=== PATIENT | male | born 1945 | race Caucasian/White ===

== ENCOUNTER 2016-10-05 14:33 | Inpatient (IN) | payer MEDICARE, OTHER ==
[~2016-10-05] VITALS: Ht 157.5 cm; Wt 102.7 kg
[2016-10-05 15:01] LABS: HEMOGLOBIN 10.6 gm/dl (14.0-17.5); RED BLOOD COUNT 3.53 M/UL (4.20-5.50); WHITE BLOOD COUNT 9.8 K/UL (4.5-11.0)
[2016-10-06] MEDS ORDERED: LASIX40 MG PO (00:04)
[2016-10-06] MEDS ORDERED: LEVOTHYROXINE25 MCG PO (00:04)
[2016-10-06] MEDS ORDERED: KLONOPIN TAB 00.5 MG PO (00:05)
[2016-10-06] MEDS ORDERED: ZANTAC150 MG PO (00:05)
[2016-10-06] MEDS ORDERED: RANEXA1000 MG PO (00:07)
[2016-10-06] MEDS ORDERED: UROXATRAL 10 MG10 MG PO (00:07)
[2016-10-06] MEDS ORDERED: BRILINTA90 MG PO (00:08)
[2016-10-06] MEDS ORDERED: PAROXETINE HCL40 MG PO (00:09)
[2016-10-06] MEDS ORDERED: METOPROLOL TART50 MG PO (00:10)
[2016-10-06] MEDS ORDERED: LIPITOR TAB 2020 MG PO ×2 (00:10→00:11)
[2016-10-06] MEDS ORDERED: ISOSORBIDE MONO10 MG PO (00:13)
[2016-10-06] MEDS ORDERED: AVODART0.5 MG PO (00:14)
[2016-10-06] MEDS ORDERED: ASPIR 8181 MG PO (00:15)
[2016-10-06] MEDS ORDERED: NORVASC 5 MG TAB5 MG PO (00:15)
[2016-10-06] MEDS ORDERED: TRICOR 145 MG145 MG PO (00:15)
[2016-10-06] MEDS ORDERED: VITAMIN C 500500 MG PO (00:16)
[2016-10-06] MEDS ORDERED: HYDRALAZINE HCL50 MG PO (00:17)
[2016-10-06] MEDS ORDERED: K-DUR TAB 20 M20 MEQ PO (00:17)
[2016-10-06] MEDS ORDERED: NITROGLYCERIN0.4 MG SL (00:19)
[2016-10-06 06:05] LABS: HEMOGLOBIN 11.1 gm/dl (14.0-17.5); RED BLOOD COUNT 3.67 M/UL (4.20-5.50); WHITE BLOOD COUNT 9.7 K/UL (4.5-11.0)
[2016-10-07 04:14] LABS: HEMOGLOBIN 11.1 gm/dl (14.0-17.5); RED BLOOD COUNT 3.72 M/UL (4.20-5.50); WHITE BLOOD COUNT 10.2 K/UL (4.5-11.0)
[2016-10-08 06:14] LABS: HEMOGLOBIN 11.1 gm/dl (14.0-17.5); RED BLOOD COUNT 3.7 M/UL (4.20-5.50); WHITE BLOOD COUNT 10.4 K/UL (4.5-11.0)
[2016-10-09 03:51] LABS: HEMOGLOBIN 11.2 gm/dl (14.0-17.5); RED BLOOD COUNT 3.79 M/UL (4.20-5.50); WHITE BLOOD COUNT 8.7 K/UL (4.5-11.0)
[2016-10-13 04:55] LABS: BUN/CREATININE RATIO 35 (0-10)
[2016-10-15] MEDS ORDERED: MIRALAX PACK 171 PKT PO (10:27)
[2016-10-15] MEDS ORDERED: COMBIVENT0.074 GM/I INH (10:29)
[2016-12-01] MEDS ORDERED: VITAMIN D31000 UNIT PO (18:16)
[2016-12-03] MEDS ORDERED: SPIRIVA18 MCG INH (20:10)
== END 2016-10-15 11:25 | disposition home health service (06) | DRG 207 ==
LOC: ER1 14:33 → PROG CARE 17:58 → ZEROF 17:58 → CCU 17:58 → PROG CARE 23:35 → CCU 10-06 10:41 → PROG CARE 10-13 16:05
PROVIDERS: Emergency Medicine; Internal Medicine; Internal Medicine Nephrology; ADMIT Hospitalist
PROC: 5A1955Z Respiratory Ventilation, Greater than 96 Consecutive Hours (ICD-10-PCS; principal; 2016-10-06)
PROC: 0BH17EZ Insertion of Endotracheal Airway into Trachea, Via Natural or Artificial Opening (ICD-10-PCS; 2016-10-06)
PROC: 5A09357 Assistance with Respiratory Ventilation, Less than 24 Consecutive Hours, Continuous Positive Airway Pressure (ICD-10-PCS; 2016-10-10)
DX: J96.21 Acute and chronic respiratory failure with hypoxia (principal); I50.33 Acute on chronic diastolic (congestive) heart failure; I13.0 Hypertensive heart and chronic kidney disease with heart failure and stage 1 through stage 4 chronic kidney disease, or unspecified chronic kidney disease; N17.9 Acute kidney failure, unspecified; E87.0 Hyperosmolality and hypernatremia; E66.2 Morbid (severe) obesity with alveolar hypoventilation; Z68.41 Body mass index [BMI] 40.0-44.9, adult; Z99.11 Dependence on respirator [ventilator] status; J96.02 Acute respiratory failure with hypercapnia; N18.3 Chronic kidney disease, stage 3 (moderate); I25.10 Atherosclerotic heart disease of native coronary artery without angina pectoris; E87.6 Hypokalemia; T50.1X5A Adverse effect of loop [high-ceiling] diuretics, initial encounter; I70.203 Unspecified atherosclerosis of native arteries of extremities, bilateral legs; J44.9 Chronic obstructive pulmonary disease, unspecified; E03.9 Hypothyroidism, unspecified; D64.9 Anemia, unspecified; E78.5 Hyperlipidemia, unspecified; K21.9 Gastro-esophageal reflux disease without esophagitis; I07.1 Rheumatic tricuspid insufficiency; R50.9 Fever, unspecified; F17.210 Nicotine dependence, cigarettes, uncomplicated; F41.9 Anxiety disorder, unspecified; Z95.1 Presence of aortocoronary bypass graft; Z98.61 Coronary angioplasty status; Z95.820 Peripheral vascular angioplasty status with implants and grafts; Z72.3 Lack of physical exercise; Z99.81 Dependence on supplemental oxygen; Z79.82 Long term (current) use of aspirin; Z79.899 Other long term (current) drug therapy; Z88.2 Allergy status to sulfonamides; Z82.49 Family history of ischemic heart disease and other diseases of the circulatory system; Z80.3 Family history of malignant neoplasm of breast
CPT/HCPCS: ECHO; 31500; 36415; 36600; 71010; 71020; 74000; 80048; 80053; 80202; 81001; 82043; 82550; 82553; 82570; 82803; 83735; 83874; 83880; 84132; 84439; 84443; 84484; 85025; 85027; 87040; 87070; 87081; 87205; 93005; 93306; 93970; 94002; 94003; 94640; 94660; 94664; 96374; 96375; 97110; 97116; 97530; 99285; A4628; C1751; J0330; J1120; J1940; J1956; J2250; J2765; J2930; J3370; J3480; J7050; J7070

== ENCOUNTER → 2016-10-21 | Outpatient (CLI) | payer MEDICARE, OTHER ==
[~2016-10-21] MED LIST: ASPIR 8181 MG PO; AVODART0.5 MG PO; BRILINTA90 MG PO; COMBIVENT0.074 GM/I INH; HYDRALAZINE HCL50 MG PO; ISOSORBIDE MONO10 MG PO; K-DUR TAB 20 M20 MEQ PO; KLONOPIN TAB 00.5 MG PO; LASIX40 MG PO; LEVOTHYROXINE25 MCG PO; LIPITOR TAB 2020 MG PO; METOPROLOL TART50 MG PO; MIRALAX PACK 171 PKT PO; NITROGLYCERIN0.4 MG SL; NORVASC 5 MG TAB5 MG PO; PAROXETINE HCL40 MG PO; RANEXA1000 MG PO; SPIRIVA18 MCG INH; TRICOR 145 MG145 MG PO; UROXATRAL 10 MG10 MG PO; VITAMIN C 500500 MG PO; VITAMIN D31000 UNIT PO; ZANTAC150 MG PO
== END ==
LOC: LAB 13:15
PROVIDERS: Internal Medicine
DX: N19 Unspecified kidney failure (principal)
CPT/HCPCS: 36415; 80048

== ENCOUNTER → 2016-11-07 | Outpatient (CLI) | payer MEDICARE, OTHER | LOC: NM 09:36 | DX: R06.02 Shortness of breath (principal); I25.708 Atherosclerosis of coronary artery bypass graft(s), unspecified, with other forms of angina pectoris; I50.32 Chronic diastolic (congestive) heart failure; R09.02 Hypoxemia; R60.9 Edema, unspecified; I73.9 Peripheral vascular disease, unspecified; R94.39 Abnormal result of other cardiovascular function study | CPT/HCPCS: 78452; 93017; A9502; J2785 ==

== ENCOUNTER → 2016-11-14 | Outpatient (CLI) | payer MEDICARE, OTHER | LOC: LAB 12:06 | PROVIDERS: Internal Medicine Cardiovascular Disease | DX: Z79.899 Other long term (current) drug therapy (principal) | CPT/HCPCS: 36415; 80048 ==

== ENCOUNTER → 2020-07-15 | Outpatient (CLI) | payer MEDICARE, OTHER ==
[~2020-07-15] MED LIST changes: +ALBUTEROL2.5 MG/3 M INH; +ALPHAGAN P5 ML EYEBOTH; +AMLODIPINE BESYL5 MG PO; +ASPIRIN EC81 MG PO; +ATORVASTATIN CA40 MG PO; +BUMETANIDE2 MG PO; +CARDURA 2MG TAB2 MG PO; +CATAPRES 0.1MG0.1 MG PO; +FLAGYL500 MG PO; +GABAPENTIN300 MG PO; +IMDUR ER TAB 3030 MG PO; +ISOSORBIDE MONO60 MG PO; +KLONOPIN2 MG PO; -LASIX40 MG PO; +LOPRESSOR 25 MG25 MG PO; -METOPROLOL TART50 MG PO; +MIRALAX17 GM PO; +NEURONTIN300 MG PO; +PLAVIX 75 MG TA75 MG PO; +PROTONIX 40 MG40 M1 PO; +SPIRIVA RESPIMAT4 GM INH; -SPIRIVA18 MCG INH; +TOPICAINE 530 GM TOP; +VENTOLIN HFA 66.7 GM INH; +VOLTAREN100 GM TOP; +ZOFRAN ODT 4 MG4 MG SL
== END ==
LOC: KOH-I 13:20
DX: M54.5 Low back pain (principal); M51.26 Other intervertebral disc displacement, lumbar region; M51.27 Other intervertebral disc displacement, lumbosacral region; M48.061 Spinal stenosis, lumbar region without neurogenic claudication; M48.07 Spinal stenosis, lumbosacral region
CPT/HCPCS: 72148

== ENCOUNTER → 2020-07-17 | Outpatient (CLI) | payer MEDICARE, OTHER | LOC: MAMO 05-18 11:00 → US 06-18 14:00 → MAMO 13:00 | DX: N64.4 Mastodynia (principal) | CPT/HCPCS: 76641-LT; 76641-RT; 77066 ==

== ENCOUNTER → 2020-08-10 | Outpatient (CLI) | payer MEDICARE, OTHER | LOC: LAB 12:52 | PROVIDERS: Internal Medicine Nephrology | DX: N18.30 Chronic kidney disease, stage 3 unspecified (principal) | CPT/HCPCS: 80053; 82570; 84156 ==

== ENCOUNTER → 2020-11-25 | Outpatient (CLI) | payer MEDICARE, OTHER | LOC: LAB 11:42 | PROVIDERS: Internal Medicine Nephrology | DX: N18.30 Chronic kidney disease, stage 3 unspecified (principal); E87.6 Hypokalemia | CPT/HCPCS: 36415; 80053; 82570; 83735; 84156 ==

== ENCOUNTER → 2020-12-16 | Outpatient (CLI) | payer MEDICARE, OTHER | LOC: LAB 13:14 | PROVIDERS: Internal Medicine Nephrology | DX: E87.6 Hypokalemia (principal) | CPT/HCPCS: 80048 ==

== ENCOUNTER → 2021-02-25 | Outpatient (CLI) | payer MEDICARE, OTHER | LOC: LAB 16:44 | PROVIDERS: Internal Medicine Nephrology | DX: N18.32 Chronic kidney disease, stage 3b (principal) | CPT/HCPCS: 36415; 80053; 82570; 84156 ==

== ENCOUNTER → 2021-05-26 | Outpatient (CLI) | payer MEDICARE, OTHER ==
[2021-05-27 07:11] LABS: A/G RATIO 1.4 (1.2-2.2); BILIRUBIN, TOTAL 0.2 mg/dL (0.0-1.2); CALCIUM, SERUM 9.8 mg/dL (8.6-10.2); CREATININE, SERUM 1.62 mg/dL (0.76-1.27); GLOBULIN, TOTAL 2.8 g/dL (1.5-4.5); POTASSIUM, SERUM 4.5 mmol/L (3.5-5.2); PROTEIN, TOTAL, SERUM 6.8 g/dL (6.0-8.5); VITAMIN D, 25-HYDROXY 25.5 ng/mL (30.0-100.0)
[2021-05-27 08:13] LABS: MAGNESIUM 2.1 mg/dL (1.6-2.3)
== END ==
LOC: LAB 09:49
PROVIDERS: Internal Medicine Nephrology
DX: N18.32 Chronic kidney disease, stage 3b (principal); E87.6 Hypokalemia
CPT/HCPCS: 36415; 80053; 82570; 83735; 83970; 84156

== ENCOUNTER → 2021-07-15 | Outpatient (CLI) | payer MEDICARE, OTHER | LOC: LAB 15:29 | PROVIDERS: Internal Medicine Nephrology | DX: N18.32 Chronic kidney disease, stage 3b (principal) | CPT/HCPCS: 36415; 80053; 82570; 83735; 83970; 84156 ==

== ENCOUNTER 2021-08-30 15:27 | Emergency (ER) | payer MEDICARE, OTHER ==
[2021-08-30 16:45] LABS: HEMOGLOBIN 13.7 gm/dl (14.0-17.5); RED BLOOD COUNT 4.42 M/UL (4.20-5.50); WHITE BLOOD COUNT 9.8 K/UL (4.5-11.0)
== END 2021-08-30 22:17 | disposition left against medical advice (07) ==
LOC: ER1 15:27 → CDU 20:35 → ER1 20:35
PROVIDERS: Family Medicine
DX: R07.89 Other chest pain (principal); I13.0 Hypertensive heart and chronic kidney disease with heart failure and stage 1 through stage 4 chronic kidney disease, or unspecified chronic kidney disease; I50.32 Chronic diastolic (congestive) heart failure; I25.2 Old myocardial infarction; J44.9 Chronic obstructive pulmonary disease, unspecified; N18.30 Chronic kidney disease, stage 3 unspecified; I25.10 Atherosclerotic heart disease of native coronary artery without angina pectoris; E78.5 Hyperlipidemia, unspecified; F17.210 Nicotine dependence, cigarettes, uncomplicated; Z88.2 Allergy status to sulfonamides; Z95.1 Presence of aortocoronary bypass graft; E03.9 Hypothyroidism, unspecified; F41.9 Anxiety disorder, unspecified; Z88.5 Allergy status to narcotic agent
CPT/HCPCS: 71045; 80053; 82550; 82553; 83880; 84484; 85025; 93005; 99285; U0002

== ENCOUNTER → 2021-12-10 | Outpatient (CLI) | payer MEDICARE, OTHER ==
[2021-12-10 09:01] LABS: HEMOGLOBIN 12.2 gm/dl (14.0-17.5); RED BLOOD COUNT 3.92 M/UL (4.20-5.50); WHITE BLOOD COUNT 8.3 K/UL (4.5-11.0)
[2021-12-11 08:13] LABS: THYROXINE (T4) 8.5 ug/dL (4.5-12.0)
== END ==
LOC: LAB 07:43
PROVIDERS: Internal Medicine Nephrology; Ophthalmology
DX: N18.32 Chronic kidney disease, stage 3b (principal)
CPT/HCPCS: 36415; 80053; 83519; 84436; 84439; 84443; 84480; 85027; 85652; 86140

== ENCOUNTER → 2021-12-31 | Outpatient (CLI) | payer MEDICARE, OTHER | LOC: LAB 09:34 | PROVIDERS: Internal Medicine Nephrology | DX: N18.32 Chronic kidney disease, stage 3b (principal) | CPT/HCPCS: 36415; 80048 ==